=== PATIENT | male | born 1965 | race Caucasian/White ===

== ENCOUNTER 2020-12-24 13:00 | Outpatient (RCR) | payer MEDICAID, SELFPAY ==
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
--- NOTE | 2020-12-24 13:18 | HP.OTDCSUM_ITS ---
It has been my pleasure to treat MISTY ATKINS under orders from MAKENZIE CRUZ, for the diagnosis of tib/fib fx for a total of 100 visit(s). Please see the following information for a summary of their discharge status. 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 right walnut dehydrator operator strength 90 #. right lateral pinch 18# left 18#. right tripod pinch 20# left 14#. pt MMT of BUE 4+/5. pt reports he is ind. with ADLs and IADls. pt states he is driving and shopping without difficulty- pt has met OT goals at this time. Patient Goals: Regain Strength, Return to Work Goal:: Pt will demo BUE MMT to 5/5 to increase pts ind. with ADls and IADLs by d.c. pt will demo increase in bilateral walnut dehydrator operator strength by 10# to return to PLOF. Goal:: pt will demo understanding to increase safety use of ad. eq with bathing/dressing by end of 2nd session. Plan: D/C Discharge Comments: pt was seen for 11 OT visits to increase UB strength to return to working with his [employer] business. pt demo increase in BUE MMT and has met OT goals. pt d/c from OT. If there are questions or concerns regarding this patient's occupational therapy, please fell free to call me at [phone]. Thank you for the referral of this patient. Sincerely, Paulette Metz, OTR/L, CHT
== END 2020-12-24 19:00 | disposition home or self-care (01) ==
LOC: OT 13:00
PROVIDERS: PCP Internal Medicine
DX: S82.252E Displaced comminuted fracture of shaft of left tibia, subsequent encounter for open fracture type I or II with routine healing (principal); S32.401D Unspecified fracture of right acetabulum, subsequent encounter for fracture with routine healing; M62.81 Muscle weakness (generalized); R26.2 Difficulty in walking, not elsewhere classified
CPT/HCPCS: 97110; 97166; 97530

== ENCOUNTER 2021-02-18 13:00 | Outpatient (RCR) | payer MEDICAID, SELFPAY ==
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
--- NOTE | 2021-01-20 15:46 | HP.PTREVAL_ITS ---
MAKENZIE CRUZ, It has been my pleasure to treat MISTY ATKINS over the last 19 visits for L LE Fx. Please see the progress note below for an update on the physical therapy plan of care! Subjective: Pt reports he feels like he can continue to exercise on his own. Objective/Function: L ankle pain ranges from 0-2/10. Pt is now able to ambulate 340' with a more normalized gait pattern. Pt can ascend and descend 8 stairs without UE use. R ankle now 5/5 throughout. R ankle DF ROM:12 degrees. Pt is I with HEP Plan Plan: Recheck or discharge in one month after pt has final DrJairo visit and he has contnued with HEP I Balance/Gait/Functional tests - Balance/Special Test Scores Lower Extremity Functional Score: 59 Goals Goal 1:: Decrease L LE pain x 50% to aid with ambulation Goal Time Frame: 4-6 Weeks Goal Progress: Goal Met Goal 2:: Increase L ankle DF ROM x 10 degrees to aid with squatting activity Goal Time Frame: 4-6 Weeks Goal Progress: Goal Met Goal 3:: Increase L ankle strength to 5/5 throughout to aid with stair negotiati on Goal Time Frame: 4-6 Weeks Goal Progress: Goal Met Goal 4:: I with HEP Goal Time Frame: 4-6 Weeks Goal Progress: Goal Met Goal 5:: Patient will ambulate >300 feet with a normalized gait pattern Goal Time Frame: 4-6 Weeks Goal Progress: Goal Met Goal 6:: Patient will asc/desc 8 stairs recip with no HR Goal Progress: Goal Met Anticipated Interventions Patient/Client Instruction: Educate patient on: Condition, Plan of Care For the Purpose of:: To improve self management Therapeutic Exercise to Include: Strength training, Endurance training, Balance training, Flexibilty training, Passive ROM, Active ROM, Dynamic Lumbar Stabilization For the Purpose of:: To decrease pain, To increase ROM, To improve muscle performance and motor function Cryotherapy (ice pack, ice massage): Yes For the Purpose of:: To decrease pain Please do not hesitate to contact me at [phone] by phone or if you have questions or concerns regarding this new plan of care! Sincerely, Weston Plascencia, PT, ATC
--- NOTE | 2021-02-18 13:50 | HP.PTDCSUM_ITS ---
It has been my pleasure to treat MISTY ATKINS referred by MAKENZIE CRUZ, with the diagnosis of L LE Fx for a total of 20 visit(s). Discharge Date: Please see the following information for a summary of their discharge status. Subjective: I feel like I am ready to be done L ankle Pain Intensity (Out of 10): 1 % Improvement: 95 Objective/Function: L ankle pain ranges from 0-2/10. Pt is now able to ambulate 680' with a more normalized gait pattern. Pt can ascend and descend 8 stairs x 3 reps without UE use. R ankle now 5/5 throughout. R ankle DF ROM:14 degrees. Pt is I with HEP Goal 1:: Decrease L LE pain x 50% to aid with ambulation Goal Progress: Goal Met Goal 2:: Increase L ankle DF ROM x 10 degrees to aid with squatting activity Goal Progress: Goal Met Goal 3:: Increase L ankle strength to 5/5 throughout to aid with stair negotiation Goal Progress: Goal Met Goal 4:: I with HEP Goal Progress: Goal Met Goal 5:: Patient will ambulate >300 feet with a normalized gait pattern Goal Progress: Goal Met Goal 6:: Patient will asc/desc 8 stairs recip with no HR Goal Progress: Goal Met Plan: Discharge to [facility] If there are questions or concerns regarding this patient's physical therapy, please feel free to call me at [phone]. Thank you for the referral of this patient. Sincerely, Weston Plascencia, PT, ATC Balance/Gait/Functional tests - Balance/Special Test Scores Lower Extremity Functional Score: 66
== END 2021-02-18 19:00 | disposition home or self-care (01) ==
LOC: PT 13:00
PROVIDERS: PCP Internal Medicine
DX: S82.252E Displaced comminuted fracture of shaft of left tibia, subsequent encounter for open fracture type I or II with routine healing (principal); S32.401D Unspecified fracture of right acetabulum, subsequent encounter for fracture with routine healing; M62.81 Muscle weakness (generalized); R26.2 Difficulty in walking, not elsewhere classified
CPT/HCPCS: 97110; 97140; 97161; 97164

== ENCOUNTER 2021-03-04 10:11 | Emergency (ER) | payer MEDICAID, SELFPAY ==
[2021-03-04 10:14] VITALS: BP 134/92; PULSE 118; RESP 16; TEMP 35.8; O2SAT 99; BMI 27.6
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
[2021-03-04 10:56] LABS: Anion Gap 9 (5-15); BUN 23 mg/dL (7-18); BUN/Creat Ratio 21.7 RATIO (10-20); Calcium,Total 9.4 mg/dL (8.5-10.1); Chloride 101 mmol/L (98-107); Creatinine, Serum 1.06 mg/dL (0.70-1.30); EST Glomerular Filtration Rate 77 mL/min (>60); Est Glom Filt Rate - Afr Amer 93 mL/min (>60); Estimated Creatinine Clearance 79.39 ml/min; Glucose 147 mg/dL (74-106); Potassium 3.4 mmol/L (3.5-5.1); Sodium Level 134 mmol/L (136-145)
[2021-03-04] MEDS: Rivaroxaban 15 MG Tablet PO (11:18)
== END 2021-03-04 11:37 | disposition home or self-care (01) ==
PROVIDERS: Emergency Provider Emergency Medicine; PCP Nurse Practitioner Primary Care; Visit Provider Emergency Medicine
DX: I82.401 Acute embolism and thrombosis of unspecified deep veins of right lower extremity (principal); I82.429 Acute embolism and thrombosis of unspecified iliac vein; I82.421 Acute embolism and thrombosis of right iliac vein; I82.411 Acute embolism and thrombosis of right femoral vein; I82.431 Acute embolism and thrombosis of right popliteal vein; I82.461 Acute embolism and thrombosis of right calf muscular vein; I82.441 Acute embolism and thrombosis of right tibial vein; I82.451 Acute embolism and thrombosis of right peroneal vein
CPT/HCPCS: 36415; 80048; 99283

== ENCOUNTER 2022-01-22 10:00 | Outpatient (RCR) | payer MEDICAID, SELFPAY ==
--- NOTE | 2021-09-15 10:23 | HP.PTEVAL ---
Patient's Visit Information MISTY ATKINS is a 55 year old M referred to Physical Therapy by JENNIFER VORA with a diagnosis of L tib/fib Fx- chronic. Date of Evaluation: 09/15/21 Physical Therapist: Weston Plascencia, PT, ATC - Visit Plan Frequency: 2x /Week Duration: 4-6 Weeks - Subjective Pt reports he fractured his L fibula and tibia. Pt reports he went through rehab and felt better after wards, but notes he developed blood clots in his R LE and was unable to get back to work. 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 Pt reports he was placed on blood thinners and started to feel much better. Since then, pt has returned to work but cant be on his feet for more than 3-4 hours until he begins to swell and needs a break. Pt reports he is here today because of his residual weakness and intolerance for activity. Pt reports he has to drive 40 minutes to work and it frustrates him when he gets there and is unable to tolerate much activity. Pt reports he still has trouble with stair negotiation, especially when he is carrying something in his arms. Pt reports he really doesnt have pain today, but notes he wants to get stronger and gain more stamina so he can return to work without limitation. - Objective Neuro: B LE sensation is WNL to light touch. B patellar reflex 2/3. ROM: B LE's are WFL when compared bilaterally. MMT: B hip flexors are rated at 3/5, all other LE MMT is rated at 4/5. Gait: Pt is able to ambulate greater than 1000 feet, but notes increased tightness and heaviness in his LE's that would usually make him want to take a break at work. - Balance/Special Test Scores Lower Extremity Functional Score: 63 - Goals Goal 1:: Increase B LE strength to 5/5 throughout in order to aid with pt's ability to negotiate stairs without difficulty Goal Time Frame: 4-6 Weeks Goal 2:: Pt will be able to RTW for 6+ hours without having to take a break to aid with increasing work tolerance Goal Time Frame: 4-6 Weeks Goal 3:: I with HEP Goal Time Frame: 4-6 Weeks - Rehabilitation Potential Physical Therapy Diagnosis: Pt has B LE weakness, intolerance for prolonged ambulation, and the inability to work for greater than 3-4 hours secondary to chronic L LE fractures. Rehabilitation Potential: Good - Anticipated Interventions Patient/Client Instruction: Educate patient on: Condition, Plan of Care For the Purpose of:: To improve self management Therapeutic Exercise to Include: Strength training, Endurance training, Balance training, Dynamic Lumbar Stabilization For the Purpose of:: To improve muscle performance and motor function, To increase tolerance to activity/condition/position Thank you for the opportunity to evaluate your patient. For Medicare and Medicare HMO plans, please review the plan of care and approve it. It will need to be FAXED BACK to us at [phone] for Medicare purposes. For Medicare only, by signing this I certify the plan of care. Please let me know if there are questions or concerns regarding this plan of care. Physician Signature: Date:
--- NOTE | 2022-01-22 10:58 | HP.PTDCSUM ---
It has been my pleasure to treat MISTY ATKINS referred by JENNIFER VORA, with the diagnosis of L tib/fib Fx- chronic for a total of 30 visit(s). Discharge Date: Please see the following information for a summary of their discharge status. Subjective: I am ready to be done Left Ankle Pain Intensity (Out of 10): 0 % Improvement: 95 Objective/Function: L ankle pain is now 0/10. Pt is able to work for 4 hours at a time every other day until needing to rest. Pt is I with gym routine. Pt has made significant progress toward goals Goal 1:: Increase B LE strength to 5/5 throughout in order to aid with pt's ability to negotiate stairs without difficulty Goal Progress: Goal Met Goal 2:: Pt will be able to RTW for 6+ hours without having to take a break to aid with increasing work tolerance Goal Progress: Progressing Goal 3:: I with HEP Goal Progress: Goal Met Plan: Discharge to [facility] If there are questions or concerns regarding this patient's physical therapy, please feel free to call me at [phone]. Thank you for the referral of this patient. Sincerely, Weston Plascencia, PT, ATC Balance/Gait/Functional tests - Balance/Special Test Scores Lower Extremity Functional Score: 66
== END 2022-01-22 13:05 | disposition home or self-care (01) ==
LOC: PT 10:00
PROVIDERS: PCP Nurse Practitioner Primary Care
DX: S82.202E Unspecified fracture of shaft of left tibia, subsequent encounter for open fracture type I or II with routine healing (principal); S82.402E Unspecified fracture of shaft of left fibula, subsequent encounter for open fracture type I or II with routine healing
CPT/HCPCS: 97110; 97161; 97164